=== PATIENT | female | born 1945 | race Caucasian/White ===

== ENCOUNTER 2016-12-11 16:50 | Emergency (ER) | payer MEDICARE ==
[~2016-12-11] VITALS: Ht 167.6 cm; Wt 141.0 kg
[~2016-12-11 16:50] MED LIST: ALBU8.5H2 IH; ALPR.25T PO; AMLO5TAB4 PO; AMOX1TAB12 PO; ARIP15TA3 PO; ASP81CT PO; ASPI-586 PO; ASPI81TA42 PO; ATOR20TA PO; CARI350T PO; CARV25TA30 PO; CHOL100045 PO; CHOL2000 PO; CYAN10006 PO; CYAN100088 PO; CYCL10TA45 PO; DICL100G13 TOP; FLUO20CA42 PO; FLUO40CA PO; GBPN300C PO; HYDR-3702 PO; HYDR-3754 PO; LEVO125T70 PO; LEVO175T5 PO; LEVO25CA2 PO; LOSA100T8 PO; NAPR500T PO; NFMET1000 PO; NITR0.4T PO; OLAN5TAB3 PO; OMEP40CA36 PO; PRAV40TA PO; SIMV40TA2 PO; TELM1TAB2 PO; TELM40T PO; TELM80TA5 PO; TRAM-25 PO; WALK1EAC23 MC; WHEE1EAC3 MC
[2016-12-11] MEDS: NITROGLYCERIN SUBLINGUAL 0.4 MG (NITROQUICK) TABLET SL PRN ×2 (17:55→18:20)
[2016-12-11 18:04] LABS: BASOPHILS % (AUTO) 0 % (0-2); EOSINOPHILS # (AUTO) 0.3 10^3uL; EOSINOPHILS % (AUTO) 3 % (0-4); LYMPHOCYTES # (AUTO) 2.1 X10^3; MEAN CORPUSCULAR VOLUME 83 FL (80-100); MEAN PLATELET VOLUME 9.9 FL (6.0-9.5); MONOCYTES # (AUTO) 0.9 X10^3; MONOCYTES % (AUTO) 9 % (3-11); NEUTROPHILS # (AUTO) 6.2 X10^3; NEUTROPHILS % (AUTO) 65 % (51-67); PLATELET COUNT 267 10^3uL (150-450); WHITE BLOOD COUNT 9.55 10^3uL (4.0-11.0)
[2016-12-11 18:05] LABS: ALBUMIN 3.9 g/dL (3.4-5.0); ANION GAP 14.1 MEQ/L (3-15); TOTAL PROTEIN 7.3 g/dL (6.4-8.5)
--- NOTE | 2016-12-11 18:18 | Diagnostic Imaging Report ---
INDICATION: Chest pain. FINDINGS: Portable chest shows the lungs to be well aerated and clear. Heart is mildly enlarged. No evidence of pulmonary edema. No pneumothorax or pleural effusions. No hilar adenopathy. IMPRESSION: Heart is mildly enlarged though no changes are seen to suggest pulmonary edema. No acute infiltrate. Dictated by: Dictated on workstation # [id number]
[2016-12-11 18:27] LABS: MEAN CORPUSCULAR HEMOGLOBIN 25.2 PG (26.0-34.0); MEAN CORPUSCULAR HGB CONC 30.4 g/dL (31.0-37.0)
[2016-12-11] MEDS ORDERED: LORazepam 2 MG/ML (ATIVAN) 1 ML VIAL IV ONE ×2 (19:30→20:25)
--- NOTE | 2016-12-11 19:30 | NUR ---
[facility] CALLED FOR DR SINGLETON TO TALK WITH [facility] [employer] DR MEYER. THEY WILL ATTEMPT TO GET IN TOUCH WITH HIM & CALL US BACK. CL
[2016-12-11 20:47] VITALS: BP 178/70
[2016-12-19] MEDS ORDERED: CLOP75TA28 PO (16:05)
[2016-12-19] MEDS ORDERED: POTA10TA10 PO (16:05)
[2016-12-19] MEDS ORDERED: FURO80TA3 PO (16:43)
== END 2016-12-11 20:48 | disposition short-term general hospital (02) ==
LOC: ED 16:52
DX: R07.9 Chest pain, unspecified (principal); I25.10 Atherosclerotic heart disease of native coronary artery without angina pectoris; I10 Essential (primary) hypertension
CPT/HCPCS: 36415; 71010; 80053; 84484; 85025; 93005; A9270; J2060; 93010; 96374; 96376; 99283; 99285

== ENCOUNTER → 2016-12-11 | Outpatient (CLI) | payer MEDICARE | LOC: EMS 16:43 | PROVIDERS: ATTEND Internal Medicine | DX: R07.89 Other chest pain (principal) ==

== ENCOUNTER 2016-12-19 15:30 | Emergency (ER) | payer MEDICARE ==
[~2016-12-19] VITALS: Ht 170.2 cm; Wt 145.4 kg
[2016-12-19] MEDS ORDERED: SODIUM CHLORIDE FLUSH 3 ML SYR IV PRN (16:30)
[2016-12-19 16:48] VITALS: BP 130/55
== END 2016-12-19 16:25 | disposition home or self-care (01) ==
LOC: ED 15:31
DX: R07.89 Other chest pain (principal); I25.10 Atherosclerotic heart disease of native coronary artery without angina pectoris; Z95.5 Presence of coronary angioplasty implant and graft
CPT/HCPCS: 93005; 93010; 99283; 99285

== ENCOUNTER → 2017-01-21 | Outpatient (REF) | payer MEDICARE ==
[2017-01-21 17:58] LABS: MEAN CORPUSCULAR HEMOGLOBIN 27.1 PG (26.0-34.0); MEAN CORPUSCULAR VOLUME 87 FL (80-100); PLATELET COUNT 234 10^3uL (150-450); WHITE BLOOD COUNT 7.61 10^3uL (4.0-11.0)
[2017-01-21 18:02] LABS: MEAN CORPUSCULAR HGB CONC 31.3 g/dL (31.0-37.0)
[2017-01-21 18:07] LABS: ANISOCYTOSIS SLIGHT; BAND NEUTROPHILS % 2 % (0-6); EOSINOPHILS % 3 % (0-4); LYMPHOCYTES # 1.3 #; MONOCYTES # 0.7 #; MONOCYTES % 10 % (3-11); RBC MORPH SEE REFERENCE (NORMAL); SEGMENTED NEUTROPHILS % 67 % (51-67); TOTAL CELLS COUNTED 100
[2017-01-22 15:21] LABS: IRON 71 ug/dL (50-170); UNBOUND IRON CONTENT 238 ug/dl (126-382)
== END ==
LOC: LAB 16:48
PROVIDERS: ATTEND Internal Medicine Hematology & Oncology
DX: D50.9 Iron deficiency anemia, unspecified (principal)
CPT/HCPCS: 82728; 83540; 83550; 85007; 85027

== ENCOUNTER → 2017-02-20 | Outpatient (CLI) | payer MEDICARE ==
[~2017-02-20] MED LIST changes: +CLOP75TA28 PO; +FURO80TA3 PO; +POTA10TA10 PO
== END ==
LOC: RT 12:41
PROVIDERS: ATTEND Internal Medicine
DX: I25.10 Atherosclerotic heart disease of native coronary artery without angina pectoris (principal)
CPT/HCPCS: 93005

== ENCOUNTER → 2017-03-04 | Outpatient (CLI) | payer MEDICARE ==
--- NOTE | 2017-03-04 10:53 | Diagnostic Imaging Report ---
Technique: Grayscale, pulsed and color Doppler imaging of the left lower extremity. INDICATION: Left lower extremity pain and swelling. COMPARISON: Left lower extremity DVT, examination of 07/06/2016. FINDINGS: The left common femoral, femoral and popliteal veins are patent without evidence of DVT. Visualized proximal aspects of the greater saphenous, deep femoral, posterior tibial and peroneal veins are also patent. All of the evaluated deep venous structures demonstrate normal compressibility and waveform augmentation where applicable. Incidental note of benign lymph node in the left inguinal region. IMPRESSION: No left lower extremity deep venous thrombosis (DVT). Dictated by: Dictated on workstation # [id number]
== END ==
LOC: RAD 09:58
PROVIDERS: ATTEND Family Medicine
DX: R60.0 Localized edema (principal)